=== PATIENT | female | born 1980 | race Caucasian/White ===

== ENCOUNTER 2020-07-28 12:13 | Emergency (ER) | payer OTHER, SELFPAY ==
[2020-07-28] MEDS ORDERED: Ibuprofen 800 MG TAB ONE (12:26)
[2020-07-28] MEDS ORDERED: HYDROcodone/Acetaminophen 10/325 mg Tablet ONE (12:26)
[2020-07-28] MEDS ORDERED: Boostrix 0.5 ML VIAL ONE (12:33)
[2020-07-28] MEDS ORDERED: Bacitracin 1 PK ONE (13:01)
== END 2020-07-28 13:11 | disposition home or self-care (01) ==
LOC: BURERS 12:13
DX: T23.211A Burn of second degree of right thumb (nail), initial encounter (principal); X08.8XXA Exposure to other specified smoke, fire and flames, initial encounter
CPT/HCPCS: 16020; 90471; 90715

== ENCOUNTER 2022-09-15 09:03 | Emergency (ER) | payer MEDICAID, OTHER ==
[2022-09-15] MEDS ORDERED: Orphenadrine Citrate 60 MG/2 ML VIAL ONE (09:32)
[2022-09-15] MEDS ORDERED: Ketorolac Tromethamine 60 MG/2 ML VIAL ONE (09:32)
[2022-09-15] MEDS ORDERED: HYDROcodone/Acetaminophen 5/325 mg Tablet ONE (10:26)
== END 2022-09-15 10:33 | disposition home or self-care (01) ==
LOC: BURERS 09:03
DX: M54.50 Low back pain, unspecified (principal)
CPT/HCPCS: 72131; 96372; J1885; J2360

== ENCOUNTER 2022-12-01 07:17 | Emergency (ER) | payer MEDICAID, OTHER ==
[2022-12-01] MEDS ORDERED: methylPREDNISolone Sod Succ/PF 125 MG/2 ML VIAL ONE (07:40)
== END 2022-12-01 08:05 | disposition home or self-care (01) ==
LOC: BURERS 07:17
DX: M54.32 Sciatica, left side (principal)
CPT/HCPCS: 96372; 99283; J2930